=== PATIENT | male | born 1970 | race Caucasian/White ===

== ENCOUNTER 2017-11-11 08:04 | Day surgery (SDC) | payer MEDICAID ==
[2017-11-11] VITALS (10 sets, daily range): BP systolic 93–137; BP diastolic 58–98; Ht 172.7 cm; Wt 84.1 kg
[~2017-11-11] VITALS: Ht 172.7 cm; Wt 84.1 kg
--- NOTE | ~2017-11-11 | OP ---
PATIENT NAME: LUCIO JARA MEDICAL RECORD: [id number] :68 LOCATION:[facility].CV05 ADMISSION DATE: SURGEON: REBECCA PARK MD DATE OF OPERATION: 11/11/2017 PREOPERATIVE DIAGNOSES: Failed fusion at C6-C7. Osteophyte and disc herniation at C4-C5 with bilateral C5 radiculopathy. POSTOPERATIVE DIAGNOSIS: Successful fusion at C6-C7. PROCEDURES: Removal of hardware with Spine-Link, anterior cervical plates at C5-C6 and C6-C7. Anterior cervical discectomy and fusion with removal of osteophytes at C4-C5 with Zavation anterior cervical midline plate. PEEK interbody cage. Radha bone with stem cells. DESCRIPTION OF TECHNIQUE: After induction of general endotracheal anesthesia, the patient was positioned supine on the operating table. Neck was prepped and draped in usual sterile fashion. Fluoroscopic x-ray and freer localized the anterior cervical plate and screws. A skin incision was carried out from the midline to the sternocleidomastoid muscle. The platysma was divided with Bovie cautery. Using blunt and sharp dissection with Metzenbaum scissors, I proceeded in the avascular plane medial to the carotid sheath. The plates from C5, C6, and C7 were identified. The screws and plates were removed with appropriate hardware from Spine-Link. All the hardware was removed and confirmed with fluoroscopic x-ray. [place] pins were placed by C6 and C7 and distracted. There was no movement at the C6-C7 interspace; therefore, it was determined that this was fused. Next, attention was turned to the C4-C5 interspace. [place] pins were placed by C4 and C5. Disc space was incised under distraction. Disc material was removed with pituitary rongeurs and curettes. Posteriorly, the Midas Travis drill was used to remove osteophytes and the posterior longitudinal ligament was removed as well. Following this, the dura was decompressed as well. Meticulous hemostasis was maintained throughout the wound. The wound was irrigated with copious amounts of Ancef irrigant solution. The platysma and subdermal layer were closed with interrupted 3-0 Vicryl suture. The skin was reapproximated with Steri-Strips and benzoin. A sterile dressing was applied to the wound. The patient was awakened in good condition and taken to recovery. All counts were reported as correct. Estimated blood loss was minimal. ADDENDUM Zavation plate was used to span the C4-C5 interspace. Prior to this, a PEEK interbody cage was placed in the disc space under distraction. The 18-mm screws were placed through holes in the plate and locking cams tightened down screw heads. Good position of hardware was confirmed with fluoroscopic x-ray. TRANSINT:[id number] Voice Confirmation ID: [id number] DOCUMENT ID: [id number] OPERATIVE REPORT [id number] TRIPLET,REBECCA BUCHANAN MD at 1338 CC: [id number] DICTATION DATE: 11/11/17 1711 ASSET PROTECTION REPRESENTATIVE: 11/11/[address] [facility] [address] [place] [address]
[~2017-11-11 08:04] MED LIST: LISINOPRIL10 MG PO; NORCO 7.5/325 T1 TA1 PO; PROZAC20 MG PO; SOMA350 MG PO
[2017-11-11 08:18] LABS: HEMATOCRIT 46.9 % (42.0-54.0); HEMOGLOBIN 15.9 g/dL (13.5-17.5); MCH 30.5 pg (26.0-34.0); MCHC 33.9 g/dL (31.0-37.0); MEAN PLATELET VOLUME 10.4 fL (7.4-10.4); RBC 5.21 10x6/uL (4.20-6.10); RDW 13.4 % (11.5-14.5); WBC 5.9 10x3/uL (4.8-10.8)
[2017-11-12] VITALS (10 sets, daily range): BP systolic 90–138; BP diastolic 46–95
[2017-11-12] MEDS ORDERED: SOMA350 MG PO (11:34)
[2017-11-12] MEDS ORDERED: LISINOPRIL10 MG PO (11:34)
[2017-11-12] MEDS ORDERED: NORCO 7.5/325 T1 TA1 PO (11:35)
[2017-11-12] MEDS ORDERED: MEDROL DOSE PACK4 MG PO (11:36)
[2017-11-12] MEDS ORDERED: ROBAXIN PO (12:08)
== END 2017-11-12 13:00 | disposition home or self-care (01) ==
LOC: D.CVICU 08:04 → D.OPS 08:04 → D.PAN 10:30 → D.OPS 10:30 → D.PAN 11:00 → D.CVICU 18:05 → D.OPS 11-12 13:00 → D.CVICU 11-12 13:50 → D.OPS 11-12 15:04 → D.CVICU 11-12 15:05 → D.OPS 11-12 15:05
PROVIDERS: Anesthesiology
DX: T81.89XA Other complications of procedures, not elsewhere classified, initial encounter (principal); M25.78 Osteophyte, vertebrae; M50.121 Cervical disc disorder at C4-C5 level with radiculopathy; Z01.812 Encounter for preprocedural laboratory examination